=== PATIENT | male | born 1980 | race Caucasian/White ===

== ENCOUNTER 2020-03-06 05:42 | Observation (INO) | payer OTHER ==
[~2020-03-06] VITALS: Ht 182.9 cm; Wt 105.2 kg
[2020-03-06] VITALS (10 sets, daily range): BP systolic 125–147; BP diastolic 74–88
[~2020-03-06 05:42] MED LIST: ASPI-728 PO; ISOS30TA6 PO; METO-391 PO; NITR0.4T50 SL; SODIUM CHLORIDE 0.9% 1,000 ML IV ONE
[2020-03-06] MEDS ORDERED: SODIUM CHLORIDE 0.9% 1,000 ML ONE (05:53)
[2020-03-06 06:26] LABS: COVID AG,FIA SOURCE NASOPHARYNGEAL
[2020-03-06 06:37] LABS: BASOPHILS % (AUTO) 0.7 % (0.0-2.0); EOSINOPHILS % (AUTO) 2.4 % (1.0-6.0); HEMATOCRIT 46.5 % (41-53); HEMOGLOBIN 15.7 g/dL (13.5-17.5); LYMPHOCYTES # (AUTO) 1.6 K/uL (1.0-4.8); MEAN CORPUSCULAR HEMOGLOBIN 30.5 pg (26.0-34.0); MEAN CORPUSCULAR HGB CONC 33.7 G/dL (31.0-37.0); MEAN CORPUSCULAR VOLUME 91 fL (80-100); MONOCYTES # (AUTO) 0.7 K/uL (0.1-1.0); MONOCYTES % (AUTO) 10.2 % (2.0-9.0); NEUTROPHILS % (AUTO) 61.7 % (40.0-70.0); PLATELET COUNT (AUTO) 180 K/uL (150-450); RED BLOOD CELL COUNT(AUTO) 5.14 MIL/uL (4.50-5.90); RED CELL DISTRIBUTION WIDTH 12.6 % (11.5-14.5)
[2020-03-06 06:49] LABS: ANION GAP 3 mmol/L (8-16); CALCIUM, TOTAL 9.5 mg/dL (8.8-10.5); CARBON DIOXIDE 30 mmol/L (22-29); CHLORIDE 103 mmol/L (98-107); CREATININE 1.07 mg/dL (0.60-1.30); GLOMERULAR FILTR. RATE CALC > 60 mL/min (>60); GLUCOSE,RANDOM 111 mg/dL (70-110); POTASSIUM 4.5 mmol/L (3.5-5.1); SODIUM SERUM 136 mmol/L (136-145); UREA NITROGEN, BLOOD 16 mg/dL (7-18)
[2020-03-06 06:55] LABS: ALANINE AMINOTRANSFERASE 54 U/L (12-78); ALBUMIN 4.4 g/dL (3.4-5.0); ALKALINE PHOSPHATASE 87 U/L (46-116); ASPARTATE AMINOTRANSFERASE 35 U/L (15-37); BILIRUBIN,TOTAL 0.3 mg/dL (0.1-1.0); TOTAL PROTEIN, SERUM 7.8 g/dL (6.4-8.2)
[2020-03-06] MEDS ORDERED: MIDAZOLAM HCL 2 MG/2 ML VIAL ONE ×3 (07:01→08:20)
[2020-03-06] MEDS ORDERED: FentaNYL CITRATE-PF 100 MCG/2 ML VIAL ONE ×2 (07:01→08:20)
[2020-03-06] MEDS ORDERED: IOHEXOL 300 MG/ML 150 ML VIAL ONE ×2 (07:02→08:30)
[2020-03-06] MEDS ORDERED: HEPARIN SODIUM 1000 UNITS/NS 1,000 ML ONE (07:02)
[2020-03-06] MEDS ORDERED: SODIUM BICARBONATE 50 MEQ/50 ML VIAL ONE (07:02)
[2020-03-06] MEDS ORDERED: LIDOCAINE/PF 1% 30 ML VIAL ONE (07:02)
[2020-03-06] MEDS ORDERED: VERAPAMIL HCL 2.5 MG/ML 2 ML VIAL ONE (07:07)
[2020-03-06] MEDS ORDERED: NITROGLYCERIN 50 MG/D5% WATER 250 ML ONE (07:07)
[2020-03-06] MEDS ORDERED: HEPARIN SODIUM 1000 UNITS/NS 1,000 ML IARTER ONE (07:39)
[2020-03-06] MEDS ORDERED: LIDOCAINE 1% 30 ML/SOD BICARB 8.4% 4 ML SQ ONE (07:45)
[2020-03-06] MEDS ORDERED: IOHEXOL 300 MG/ML 150 ML VIAL IARTER ONE (07:45)
[2020-03-06] MEDS ORDERED: IOHEXOL 300 MG/ML 50 ML VIAL ONE (08:30)
[2020-03-06] MEDS ORDERED: FentaNYL CITRATE-PF 100 MCG/2 ML VIAL IVP ONE ×2 (08:30)
[2020-03-06] MEDS ORDERED: MIDAZOLAM HCL 2 MG/2 ML VIAL IVP ONE ×2 (08:30)
[2020-03-06] MEDS ORDERED: HEPARIN SODIUM,PORCINE 5,000 UNITS/ML VIAL IVP ONE (08:30)
[2020-03-06] MEDS ORDERED: NITROGLYCERIN/D5W 50 MG/250 ML IV BOTTLE ICOR ONE ×3 (09:00)
[2020-03-06] MEDS ORDERED: CLOPIDOGREL BISULFATE 300 MG TABLET ONE (09:13)
[2020-03-06] MEDS ORDERED: ASPIRIN 325 MG TABLET ONE (09:19)
[2020-03-06] MEDS ORDERED: SODIUM CHLORIDE 0.9% 500 ML IV ONE (09:30)
[2020-03-06] MEDS ORDERED: ASPIRIN 325 MG TABLET PO ONE (09:30)
[2020-03-06] MEDS ORDERED: CLOPIDOGREL BISULFATE 300 MG TABLET PO ONE (09:30)
[2020-03-06 11:36] LABS: CHOL/HDL RATIO 6.5 (4.2-7.3); CHOLESTEROL 221 mg/dL (131-200); HDL CHOLESTEROL 34 mg/dL (40-60); LDL CHOL (CALC.) 146 mg/dL (0-130); TRIGLYCERIDES 206 mg/dL (15-150)
[2020-03-07 01:05] VITALS: BP 145/71
[2020-03-07 04:26] VITALS: BP 123/72
[2020-03-07 06:53] LABS: BASOPHILS % (AUTO) 0.2 % (0.0-2.0); EOSINOPHILS % (AUTO) 1.5 % (1.0-6.0); HEMOGLOBIN 15.9 g/dL (13.5-17.5); LYMPHOCYTES # (AUTO) 1.3 K/uL (1.0-4.8); LYMPHOCYTES % (AUTO) 19.2 % (22.0-44.0); MEAN CORPUSCULAR HEMOGLOBIN 30.3 pg (26.0-34.0); MEAN CORPUSCULAR HGB CONC 33.9 G/dL (31.0-37.0); MEAN CORPUSCULAR VOLUME 89 fL (80-100); MONOCYTES # (AUTO) 0.7 K/uL (0.1-1.0); MONOCYTES % (AUTO) 10.5 % (2.0-9.0); NEUTROPHILS # (AUTO) 4.5 K/uL (1.8-7.7); NEUTROPHILS % (AUTO) 68.6 % (40.0-70.0); PLATELET COUNT (AUTO) 178 K/uL (150-450); RED BLOOD CELL COUNT(AUTO) 5.26 MIL/uL (4.50-5.90); RED CELL DISTRIBUTION WIDTH 12.6 % (11.5-14.5)
[2020-03-07 07:15] VITALS: BP 124/78
[2020-03-07 07:41] LABS: ANION GAP 4 mmol/L (8-16); CALCIUM, TOTAL 9.6 mg/dL (8.8-10.5); CARBON DIOXIDE 31 mmol/L (22-29); CHLORIDE 103 mmol/L (98-107); CREATINE KINASE, TOTAL ONLY 240 U/L (39-308); CREATININE 1.17 mg/dL (0.60-1.30); GLOMERULAR FILTR. RATE CALC > 60 mL/min (>60); GLUCOSE,RANDOM 108 mg/dL (70-110); POTASSIUM 4.3 mmol/L (3.5-5.1); SODIUM SERUM 138 mmol/L (136-145); UREA NITROGEN, BLOOD 12 mg/dL (7-18)
[2020-03-07] MEDS ORDERED: CLOPIDOGREL BISULFATE 75 MG TABLET PO SCH (09:00)
[2020-03-07] MEDS ORDERED: METOPROLOL SUCCINATE 50 MG ER TABLET PO SCH (09:00)
[2020-03-07] MEDS ORDERED: ASPIRIN 325 MG TABLET PO SCH (09:00)
[2020-03-07] MEDS ORDERED: METO-558 PO (11:20)
[2020-03-07] MEDS ORDERED: NITR0.4T52 SL (11:20)
[2020-03-07 11:45] VITALS: BP 128/68
[2020-03-07] MEDS ORDERED: ATORVASTATIN CALCIUM 40 MG TABLET PO ONE (11:45)
[2020-03-07] MEDS ORDERED: CLOP-31 PO (12:51)
[2020-03-07] MEDS ORDERED: ATOR40TA28 PO (12:53)
[2020-03-07 16:09] VITALS: BP 122/70
[2020-03-07] MEDS ORDERED: ATORVASTATIN CALCIUM 40 MG TABLET PO SCH (21:00)
== END 2020-03-07 16:25 | disposition home or self-care (01) ==
LOC: CATHLAB 05:42 → 5S 05:43 → INTOOBSV 05:43
PROVIDERS: ADMIT Internal Medicine Cardiovascular Disease; ATTEND Internal Medicine Cardiovascular Disease
DX: I20.9 Angina pectoris, unspecified (principal); Z20.828 Contact with and (suspected) exposure to other viral communicable diseases; Z95.5 Presence of coronary angioplasty implant and graft
CPT/HCPCS: 36415 ×2; 80048; 80053; 80061; 82550; 85025 ×2; 85610; 85730; 87426; 92920; 92928; 93005 ×2; 93451; 96360; 96361; 99219; C1760; C1769; C1874; C1887; C1892; C9803; J1644; J2250; J3010; J3490 ×3; J7030; J7040; Q9967 ×2

== ENCOUNTER 2020-03-23 05:24 | Day surgery (SDC) | payer OTHER ==
[~2020-03-23] VITALS: Ht 182.9 cm; Wt 106.8 kg
[~2020-03-23 05:24] MED LIST changes: +ATOR40TA28 PO; +CLOP-31 PO; -ISOS30TA6 PO; -METO-391 PO; +METO-558 PO; -NITR0.4T50 SL; +NITR0.4T52 SL; -SODIUM CHLORIDE 0.9% 1,000 ML IV ONE
[2020-03-23] MEDS ORDERED: SODIUM CHLORIDE 0.9% 1,000 ML IV ONE (06:00)
[2020-03-23 06:16] LABS: COVID AG,FIA SOURCE NASOPHARYNGEAL
[2020-03-23 06:25] LABS: BASOPHILS % (AUTO) 0.6 % (0.0-2.0); EOSINOPHILS % (AUTO) 2.6 % (1.0-6.0); HEMATOCRIT 44.3 % (41-53); HEMOGLOBIN 14.9 g/dL (13.5-17.5); LYMPHOCYTES # (AUTO) 1.6 K/uL (1.0-4.8); LYMPHOCYTES % (AUTO) 27.6 % (22.0-44.0); MEAN CORPUSCULAR HEMOGLOBIN 30.1 pg (26.0-34.0); MEAN CORPUSCULAR HGB CONC 33.5 G/dL (31.0-37.0); MEAN CORPUSCULAR VOLUME 90 fL (80-100); MONOCYTES # (AUTO) 0.6 K/uL (0.1-1.0); NEUTROPHILS # (AUTO) 3.5 K/uL (1.8-7.7); NEUTROPHILS % (AUTO) 59.2 % (40.0-70.0); PLATELET COUNT (AUTO) 189 K/uL (150-450); RED BLOOD CELL COUNT(AUTO) 4.93 MIL/uL (4.50-5.90); RED CELL DISTRIBUTION WIDTH 12.1 % (11.5-14.5)
[2020-03-23 06:29] LABS: ANION GAP 5 mmol/L (8-16); CALCIUM, TOTAL 8.9 mg/dL (8.8-10.5); CARBON DIOXIDE 32 mmol/L (22-29); CHLORIDE 105 mmol/L (98-107); CREATININE 0.94 mg/dL (0.60-1.30); GLOMERULAR FILTR. RATE CALC > 60 mL/min (>60); GLUCOSE,RANDOM 110 mg/dL (70-110); SODIUM SERUM 142 mmol/L (136-145); UREA NITROGEN, BLOOD 17 mg/dL (7-18)
[2020-03-23 06:36] LABS: ALANINE AMINOTRANSFERASE 107 U/L (12-78); ALBUMIN 4.3 g/dL (3.4-5.0); ALKALINE PHOSPHATASE 86 U/L (46-116); ASPARTATE AMINOTRANSFERASE 41 U/L (15-37); BILIRUBIN,TOTAL 0.5 mg/dL (0.1-1.0); TOTAL PROTEIN, SERUM 7.2 g/dL (6.4-8.2)
[2020-03-23 06:37] LABS: INR 1.1 (0.9-1.1); PROTHROMBIN TIME 11.4 SEC (9.4-11.6)
[2020-03-23] MEDS ORDERED: LOSA50TA37 PO (06:42)
[2020-03-23] MEDS ORDERED: ASPI-989 PO (06:43)
[2020-03-23] MEDS ORDERED: MIDAZOLAM HCL 2 MG/2 ML VIAL ONE ×6 (07:02→11:24)
[2020-03-23] MEDS ORDERED: VERAPAMIL HCL 2.5 MG/ML 2 ML VIAL ONE (07:02)
[2020-03-23] MEDS ORDERED: FentaNYL CITRATE-PF 100 MCG/2 ML VIAL ONE ×3 (07:02→09:46)
[2020-03-23] MEDS ORDERED: IOHEXOL 300 MG/ML 150 ML VIAL ONE ×2 (07:03→07:40)
[2020-03-23] MEDS ORDERED: SODIUM BICARBONATE 50 MEQ/50 ML VIAL ONE (07:03)
[2020-03-23] MEDS ORDERED: NITROGLYCERIN 50 MG/D5% WATER 250 ML ONE (07:03)
[2020-03-23] MEDS ORDERED: HEPARIN SODIUM 1000 UNITS/NS 1,000 ML ONE (07:03)
[2020-03-23] MEDS ORDERED: LIDOCAINE/PF 1% 30 ML VIAL ONE (07:03)
[2020-03-23 07:35] VITALS: BP 145/74
[2020-03-23] MEDS ORDERED: HEPARIN SODIUM 1000 UNITS/NS 1,000 ML IARTER ONE (08:24)
[2020-03-23] MEDS ORDERED: LIDOCAINE 1% 30 ML/SOD BICARB 8.4% 4 ML SQ ONE (08:30)
[2020-03-23] MEDS ORDERED: FentaNYL CITRATE-PF 100 MCG/2 ML VIAL IVP ONE ×5 (08:30→11:30)
[2020-03-23] MEDS ORDERED: MIDAZOLAM HCL 2 MG/2 ML VIAL IVP ONE ×5 (08:30→11:30)
[2020-03-23] MEDS ORDERED: IOHEXOL 300 MG/ML 150 ML VIAL IARTER ONE (08:30)
[2020-03-23] MEDS ORDERED: IODIXANOL 320 MG/ML 50 ML VIAL ONE ×4 (08:41→10:51)
[2020-03-23] MEDS ORDERED: IOHEXOL 300 MG/ML 50 ML VIAL ONE (08:58)
[2020-03-23] MEDS ORDERED: HEPARIN SODIUM,PORCINE 5,000 UNITS/ML VIAL IVP ONE ×4 (09:00→11:15)
[2020-03-23] MEDS ORDERED: HEPARIN SODIUM,PORCINE 1,000 UNITS/ML 10 ML VIAL ONE (09:40)
[2020-03-23] MEDS ORDERED: NITROGLYCERIN/D5W 50 MG/250 ML IV BOTTLE ICOR ONE ×4 (10:30→11:15)
[2020-03-23] MEDS ORDERED: IODIXANOL 320 MG/ML 100 ML VIAL ONE (11:02)
[2020-03-23] MEDS ORDERED: IODIXANOL 320 MG/ML 150 ML VIAL ONE (11:02)
[2020-03-23] MEDS ORDERED: NITROGLYCERIN 2% (1 GM=INCH) PACKET TP ONE ×2 (11:21→11:30)
[2020-03-23 11:44] VITALS: BP 109/78
[2020-03-23] MEDS ORDERED: SODIUM CHLORIDE 0.9% 500 ML IV SCH (11:45)
[2020-03-23] MEDS ORDERED: OxyCODONE HCL/ACETAMINOPHEN 10-325 MG TABLET PO PRN (11:45)
[2020-03-23] MEDS ORDERED: OxyCODONE HCL/ACETAMINOPHEN 10-325 MG TABLET ONE (14:48)
== END 2020-03-23 15:35 | disposition home or self-care (01) ==
LOC: CATHLAB 05:24
PROVIDERS: ATTEND Internal Medicine Cardiovascular Disease
DX: I70.211 Atherosclerosis of native arteries of extremities with intermittent claudication, right leg (principal); I25.10 Atherosclerotic heart disease of native coronary artery without angina pectoris; K21.9 Gastro-esophageal reflux disease without esophagitis; F41.9 Anxiety disorder, unspecified; G47.30 Sleep apnea, unspecified; E03.9 Hypothyroidism, unspecified; I10 Essential (primary) hypertension; E78.2 Mixed hyperlipidemia; Z95.5 Presence of coronary angioplasty implant and graft; Z79.01 Long term (current) use of anticoagulants; Z79.899 Other long term (current) drug therapy; Z79.82 Long term (current) use of aspirin; Z20.828 Contact with and (suspected) exposure to other viral communicable diseases
CPT/HCPCS: 36415; 37227; 75710; 80053; 85025; 85610; 85730; 87426; 93005; 99152; 99153; C1714; C1725; C1760; C1769; C1874; C1887; J1644 ×2; J2250; J3010; J3490 ×3; Q9967 ×5; 36200; 37205; 37229; 75630; 75716; 75962

== ENCOUNTER 2020-05-07 05:52 | Day surgery (SDC) | payer OTHER ==
[~2020-05-07] VITALS: Ht 182.9 cm; Wt 109.0 kg
[~2020-05-07 05:52] MED LIST changes: +ASPI-989 PO; +LOSA50TA37 PO; +SODIUM CHLORIDE 0.9% 1,000 ML IV ONE
[2020-05-07] MEDS ORDERED: SODIUM CHLORIDE 0.9% 1,000 ML ONE (05:55)
[2020-05-07 07:03] LABS: CARBON DIOXIDE 32 mmol/L (22-29); CHLORIDE 104 mmol/L (98-107); POTASSIUM 4.5 mmol/L (3.5-5.1); SODIUM SERUM 140 mmol/L (136-145)
[2020-05-07 07:04] LABS: ANION GAP 4 mmol/L (8-16); CALCIUM, TOTAL 9.1 mg/dL (8.8-10.5); GLOMERULAR FILTR. RATE CALC > 60 mL/min (>60); GLUCOSE,RANDOM 113 mg/dL (70-110); UREA NITROGEN, BLOOD 14 mg/dL (7-18)
[2020-05-07 07:09] LABS: BASOPHILS % (AUTO) 0.8 % (0.0-2.0); EOSINOPHILS % (AUTO) 3.2 % (1.0-6.0); HEMATOCRIT 44.8 % (41-53); HEMOGLOBIN 15.1 g/dL (13.5-17.5); LYMPHOCYTES # (AUTO) 1.7 K/uL (1.0-4.8); LYMPHOCYTES % (AUTO) 32.2 % (22.0-44.0); MEAN CORPUSCULAR HEMOGLOBIN 30.3 pg (26.0-34.0); MEAN CORPUSCULAR HGB CONC 33.8 G/dL (31.0-37.0); MEAN CORPUSCULAR VOLUME 90 fL (80-100); MONOCYTES # (AUTO) 0.5 K/uL (0.1-1.0); MONOCYTES % (AUTO) 9.7 % (2.0-9.0); NEUTROPHILS # (AUTO) 2.8 K/uL (1.8-7.7); NEUTROPHILS % (AUTO) 54.1 % (40.0-70.0); PLATELET COUNT (AUTO) 189 K/uL (150-450); RED BLOOD CELL COUNT(AUTO) 4.99 MIL/uL (4.50-5.90); RED CELL DISTRIBUTION WIDTH 12.9 % (11.5-14.5)
[2020-05-07] MEDS ORDERED: HEPARIN SODIUM 1000 UNITS/NS 500 ML ONE ×2 (09:07→09:36)
[2020-05-07] MEDS ORDERED: IODIXANOL 320 MG/ML 50 ML VIAL ONE (09:07)
[2020-05-07] MEDS ORDERED: LIDOCAINE/PF 1% 30 ML VIAL ONE (09:07)
[2020-05-07] MEDS ORDERED: SODIUM BICARBONATE 50 MEQ/50 ML VIAL ONE (09:07)
[2020-05-07] MEDS ORDERED: IODIXANOL 320 MG/ML 150 ML VIAL ONE (09:12)
[2020-05-07 09:14] VITALS: BP 130/77
[2020-05-07] MEDS ORDERED: FentaNYL CITRATE-PF 100 MCG/2 ML VIAL ONE (10:05)
[2020-05-07] MEDS ORDERED: MIDAZOLAM HCL 2 MG/2 ML VIAL ONE ×2 (10:05→10:20)
[2020-05-07] MEDS ORDERED: FentaNYL CITRATE-PF 100 MCG/2 ML VIAL IVP ONE ×2 (10:30)
[2020-05-07] MEDS ORDERED: MIDAZOLAM HCL 2 MG/2 ML VIAL IVP ONE ×2 (10:30)
[2020-05-07] MEDS ORDERED: HEPARIN SODIUM 1000 UNITS/NS 1,000 ML IARTER ONE (10:30)
[2020-05-07] MEDS ORDERED: LIDOCAINE 1% 30 ML/SOD BICARB 8.4% 4 ML SQ ONE (10:30)
[2020-05-07] MEDS ORDERED: NITROGLYCERIN 50 MG/D5% WATER 250 ML ONE (10:43)
[2020-05-07] MEDS ORDERED: NITROGLYCERIN/D5W 50 MG/250 ML IV BOTTLE IARTER ONE ×4 (10:45→11:00)
[2020-05-07] MEDS ORDERED: HEPARIN SODIUM,PORCINE 5,000 UNITS/ML VIAL IVP ONE (11:15)
[2020-05-07 11:20] VITALS: BP 140/81
[2020-05-07] MEDS ORDERED: SODIUM CHLORIDE 0.9% 500 ML IV ONE (11:30)
== END 2020-05-07 14:10 | disposition home or self-care (01) ==
LOC: CATHLAB 05:52
PROVIDERS: ATTEND Internal Medicine Cardiovascular Disease
DX: I70.212 Atherosclerosis of native arteries of extremities with intermittent claudication, left leg (principal); I25.10 Atherosclerotic heart disease of native coronary artery without angina pectoris; K21.9 Gastro-esophageal reflux disease without esophagitis; F41.9 Anxiety disorder, unspecified; G47.30 Sleep apnea, unspecified; E03.9 Hypothyroidism, unspecified; E78.2 Mixed hyperlipidemia; I10 Essential (primary) hypertension; Z98.890 Other specified postprocedural states; Z79.899 Other long term (current) drug therapy; Z95.5 Presence of coronary angioplasty implant and graft; Z79.01 Long term (current) use of anticoagulants; Z82.49 Family history of ischemic heart disease and other diseases of the circulatory system
CPT/HCPCS: 36415; 37225; 75710; 80048; 85025; 85610; 85730; 93005; 99152; 99153; C1714; C1725; C1760; C1769; C1887; C1892; J1644; J2250; J3010; J3490 ×3; J7030; Q9967 ×2; 36200; 37229; 75630; 75716; 75962; 76001